=== PATIENT | male | born 1955 | race Caucasian/White ===

== ENCOUNTER 2025-02-07 09:24 | Emergency (ER) | payer BC ==
[~2025-02-07] VITALS: Ht 172.7 cm; Wt 81.8 kg
[2025-02-07 09:26] VITALS: TEMP 97.9
[2025-02-07 10:30] VITALS: O2SAT 96
[2025-02-07] MEDS: PROPARACAINE 0.5% OPHTH SOL 15ML OD ONE (11:23)
[2025-02-07] MEDS: FLUORESCEIN OPHTH 1 MG STRIP OD ONE (11:23)
[2025-02-07 11:42] VITALS: BP 145/90
== END 2025-02-07 11:42 | disposition home or self-care (01) ==
LOC: M ED 09:24
DX: T15.01XA Foreign body in cornea, right eye, initial encounter (principal); Y92.9 Unspecified place or not applicable; Y93.89 Activity, other specified; Y99.9 Unspecified external cause status